=== PATIENT | male | born 1950 | race Caucasian/White ===

== ENCOUNTER → 2019-10-21 12:44 | Outpatient (BNVA) | payer OTHER, SELFPAY | PROVIDERS: Visit Provider Nurse Practitioner Family | DX: R23.3 Spontaneous ecchymoses (principal); T63.331A Toxic effect of venom of brown recluse spider, accidental (unintentional), initial encounter | CPT/HCPCS: 80053; 85025; 85610 ==

== ENCOUNTER 2021-12-08 09:15 | Outpatient (CLI) | payer OTHER, SELFPAY ==
[2021-12-08 10:17] LABS: Prostate Specific AG Urology 26.76 ng/mL (0-4)
== END 2021-12-08 09:16 | disposition home or self-care (01) ==
LOC: LAB 09:18
PROVIDERS: Visit Provider Urology
DX: R97.20 Elevated prostate specific antigen [PSA] (principal)
CPT/HCPCS: 36415; 84153

== ENCOUNTER → 2021-12-14 09:23 | Outpatient (BNVA) | payer OTHER, SELFPAY | PROVIDERS: Visit Provider Urology | DX: Z53.9 Procedure and treatment not carried out, unspecified reason (principal) ==